=== PATIENT | female | born 1935 | race Caucasian/White ===

== ENCOUNTER 2019-10-26 13:30 | Emergency (ER) | payer MEDICARE ==
[~2019-10-26] VITALS: Ht 167.6 cm; Wt 90.0 kg
[~2019-10-26 13:30] MED LIST: ASPI81CT95 PO; DILT120C89 PO; INSU100S22 SUBQ; INSU100S54 SUBQ; ISOS20TA13 PO; LETR2.5T PO; LISI10TA2 PO; METF100028 PO; METO25TE71 PO; SIMV40TA1 PO
--- NOTE | 2019-10-26 13:31 | NUR ---
NOÉ AGGARWAL ALS TO ER BED 07
--- NOTE | 2019-10-26 13:45 | NUR ---
ERMD at bedside evaluating pt
[2019-10-26] MEDS ORDERED: ASPIRIN 325 MG TAB PO ONE (13:55)
[2019-10-26 14:06] VITALS: BP 123/52
[2019-10-26 14:27] LABS: BASOPHILS # (AUTO) 0.1 K/uL (0.00-0.22); BASOPHILS % (AUTO) 1.3 % (0.0-2.0); EOSINOPHILS # (AUTO) 0.4 K/uL (0-0.4); EOSINOPHILS % (AUTO) 6.6 % (0.0-4.0); HEMATOCRIT 35.4 % (36-48); HEMOGLOBIN 11.8 g/dL (12.0-16.0); LYMPHOCYTES # (AUTO) 1.4 K/uL (2.5-16.5); LYMPHOCYTES % (AUTO) 22.8 % (20.5-51.1); MEAN CORPUSCULAR HEMOGLOBIN 31 pg (27-31); MEAN CORPUSCULAR HGB CONC 33 g/dL (33-37); MEAN CORPUSCULAR VOLUME 94.1 fL (80-94); MONOCYTES # (AUTO) 0.6 K/uL (0.8-1.0); MONOCYTES % (AUTO) 10.4 % (1.7-9.3); NEUTROPHILS # (AUTO) 3.5 K/uL (1.8-7.7); NEUTROPHILS % (AUTO) 58.9 % (42.2-75.2); PLATELET COUNT (AUTO) 217 K/uL (140-450); RED BLOOD CELL COUNT(AUTO) 3.76 MIL/uL (4.20-5.40); RED CELL DISTRIBUTION WIDTH 13.3 % (11.6-13.7)
[2019-10-26 14:48] LABS: PROTHROMBIN TIME 13.1 secs (10.8-13.4)
[2019-10-26 14:52] LABS: ALBUMIN 3.6 g/dL (3.4-5.0); ANION GAP 11.6 (8-16); ASPARTATE AMINOTRANSFERASE 16 U/L (15-37); CARBON DIOXIDE 31.6 mmol/L (21-32); CHLORIDE 98 mmol/L (98-107); CREATININE 1.3 mg/dL (0.6-1.3); GLUCOSE 254 mg/dL (74-106); POTASSIUM 4.2 mmol/L (3.5-5.1); SODIUM SERUM 137 mmol/L (136-145); TOTAL BILIRUBIN 0.7 mg/dL (0.0-1.0); UREA NITROGEN, BLOOD 36 mg/dL (7-18)
--- NOTE | 2019-10-26 15:00 | NUR ---
c/o L sided chest pain radiating to L jaw & L arm 12/12, sharp/tight starting around 12:30 today. Pt reports taking a total of 3 SL nitroglycerine at home with mild pain relief. At this time, pt denies C/O chest pain/SOB. Pt states she felt weak at home so she checked her blood sugar and it was "in the 200s", pt also checked BP at home and reports a low reading of 67/40 prior to taking her nitroglycerine. BP on arrival to ED 111/85. Pt o2 sat 91% on arrival to ED. Pt placed on 2lmp NC and SP02 prabhu to 99%. Lungs CAEBL, no labored breathing or accesory muscle use noted. Pt skin cool/dry. Pt A&O x4, speaking clear & complete sentences and answering questions appropriately. EKG reads NSR @ 68 BPM, hr even and regular. bed in low position, side rail up x1. Pt placed on bedside monitoring engineer.
--- NOTE | 2019-10-26 15:45 | NUR ---
Caregiver & at bedside. Pt reports no chest pain at this time.
--- NOTE | 2019-10-26 16:51 | NUR ---
pt resting comfortably in bed at this time, conversing with family at bedside
--- NOTE | 2019-10-26 17:19 | NUR ---
Patient to be transferred to [facility]. Is being transferred due to Need for further care. Receiving facility has accepting physician and available space. ER physician has signed transfer form. Patient or responsible alliance party has agreed to transfer and signed form. Patient belongings inventoried and will be sent with patient. Copy of nursing notes, lab reports, EKG, Physicians Orders and X-rays to be sent with patient. Report called to GINO Goodrich at receiving facility. [facility] ambulance service has been called for transfer. ETA is 1730.
[2019-10-26 17:48] VITALS: BP 111/43
--- NOTE | 2019-10-26 17:50 | NUR ---
Patient Transfered to outside Facility Physician: Dr. Ortiz Location: [facility] ER Pt left with [facility] ALS transport via [facility] at this time.
== END 2019-10-26 17:50 | disposition short-term general hospital (02) ==
LOC: MED 13:30
DX: R07.9 Chest pain, unspecified (principal); E11.9 Type 2 diabetes mellitus without complications; Z79.899 Other long term (current) drug therapy; Z79.82 Long term (current) use of aspirin; Z79.84 Long term (current) use of oral hypoglycemic drugs; Z95.1 Presence of aortocoronary bypass graft
CPT/HCPCS: 36415; 71045; 80053; 83880; 84484; 85025; 85610; 85730; 93005; 99285; Q0092

== ENCOUNTER 2024-06-09 02:14 | Emergency (ER) | payer MEDICARE ==
[~2024-06-09] VITALS: Ht 165.1 cm; Wt 99.8 kg
[~2024-06-09 02:14] MED LIST changes: +SIMV-370 PO; -SIMV40TA1 PO
[2024-06-09 02:22] VITALS: BP 120/69; PULSE 122; RESP 16; TEMP 97.5; O2SAT 95
[2024-06-09] MEDS: NACL 0.9% 1,000 ML IV ONE ×2 (02:41→06:55)
[2024-06-09 03:23] LABS: HEMATOCRIT 31.9 % (36-48); HEMOGLOBIN 10.7 g/dL (12.0-16.0); RED BLOOD CELL COUNT(AUTO) 3.37 MIL/uL (4.20-5.40); WHITE BLOOD COUNT (AUTO) 6.4 K/uL (4.8-10.8)
[2024-06-09 03:24] LABS: BASOPHILS % (AUTO) 1.2 % (0.0-2.0); EOSINOPHILS % (AUTO) 3.3 % (0.0-4.0); MEAN CORPUSCULAR HEMOGLOBIN 32 pg (27-31); MEAN CORPUSCULAR HGB CONC 33 g/dL (33-37); MEAN CORPUSCULAR VOLUME 94.7 fL (80-94); MONOCYTES % (AUTO) 10.8 % (1.7-9.3); NEUTROPHILS # (AUTO) 4.1 K/uL (1.8-7.7); NEUTROPHILS % (AUTO) 63.7 % (42.2-75.2); PLATELET COUNT (AUTO) 221 K/uL (140-450); RED CELL DISTRIBUTION WIDTH 16.5 % (11.6-13.7)
[2024-06-09 03:25] LABS: BASOPHILS # (AUTO) 0.1 K/uL (0.00-0.22); EOSINOPHILS # (AUTO) 0.2 K/uL (0-0.4); LYMPHOCYTES # (AUTO) 1.4 K/uL (2.5-16.5); MONOCYTES # (AUTO) 0.7 K/uL (0.8-1.0)
[2024-06-09 03:32] LABS: INR 0.96 (0.8-1.2); PARTIAL THROMBOPLASTIN TIME 28.2 secs (22-35.6); PROTHROMBIN TIME 10.1 secs (10.8-13.4)
[2024-06-09 03:34] LABS: CALCIUM 8.4 mg/dL (8.5-10.1); CARBON DIOXIDE 31.6 mmol/L (21-32); CHLORIDE 100 mmol/L (98-107); CREATININE 1.5 mg/dL (0.6-1.3); GLUCOSE 224 mg/dL (74-106); POTASSIUM 3.6 mmol/L (3.5-5.1); SODIUM SERUM 137 mmol/L (136-145); UREA NITROGEN, BLOOD 38 mg/dL (7-18)
[2024-06-09] MEDS: VERAPAMIL 5 MG/2 ML VIAL IVP ONE (05:17)
[2024-06-09 08:27] VITALS: TEMP 97.5
[2024-06-09 09:20] VITALS: BP 109/49; PULSE 88; RESP 16; O2SAT 98
== END 2024-06-09 09:20 | disposition home or self-care (01) ==
LOC: MED 02:14
DX: I48.91 Unspecified atrial fibrillation (principal); I21.9 Acute myocardial infarction, unspecified; E11.9 Type 2 diabetes mellitus without complications; I10 Essential (primary) hypertension; Z85.3 Personal history of malignant neoplasm of breast; Z79.84 Long term (current) use of oral hypoglycemic drugs; Z98.890 Other specified postprocedural states; Z79.899 Other long term (current) drug therapy
CPT/HCPCS: 36415; 71045; 80048; 84484; 85025; 85610; 85730; 93005; 96361; 96374; 99285; J3490; J7030; Q0092